=== PATIENT | female | born 1965 | race Caucasian/White ===

== ENCOUNTER 2021-05-14 10:31 | Outpatient (CLI) | payer OTHER | END 2021-05-14 10:32 | disposition home or self-care (01) | LOC: CSHWCC 10:31 | PROVIDERS: ATTEND Nurse Practitioner Family | DX: T81.89XD Other complications of procedures, not elsewhere classified, subsequent encounter (principal); T81.31XD Disruption of external operation (surgical) wound, not elsewhere classified, subsequent encounter; E78.2 Mixed hyperlipidemia; M17.9 Osteoarthritis of knee, unspecified; M48.061 Spinal stenosis, lumbar region without neurogenic claudication; I10 Essential (primary) hypertension; E66.3 Overweight ==

== ENCOUNTER 2021-05-15 16:57 | Emergency (ER) | payer OTHER ==
[2021-05-15] MEDS ORDERED: Dexamethasone 10 MG/ML VIAL ONE (21:11)
[2021-05-16 16:56] LABS: SARS-CoV-2 PCR by NAA DETECTED (NotDetected)
== END 2021-05-15 21:20 | disposition home or self-care (01) ==
LOC: CSHERS 16:57
DX: U07.1 COVID-19 (principal); I10 Essential (primary) hypertension; E66.9 Obesity, unspecified
CPT/HCPCS: 87081; 87430; 99283; J1100; U0003; U0005

== ENCOUNTER 2021-05-21 08:04 | Outpatient (CLI) | payer OTHER | END 2021-05-21 08:05 | disposition home or self-care (01) | LOC: CSHWCC 08:04 | PROVIDERS: ATTEND Nurse Practitioner Family | DX: T81.89XD Other complications of procedures, not elsewhere classified, subsequent encounter (principal); T81.31XD Disruption of external operation (surgical) wound, not elsewhere classified, subsequent encounter; M48.061 Spinal stenosis, lumbar region without neurogenic claudication; E78.2 Mixed hyperlipidemia; M17.9 Osteoarthritis of knee, unspecified; I10 Essential (primary) hypertension; E66.3 Overweight ==

== ENCOUNTER 2021-05-24 10:10 | Outpatient (CLI) | payer OTHER | END 2021-05-24 10:11 | disposition home or self-care (01) | LOC: CSHWCC 10:10 | PROVIDERS: ATTEND Nurse Practitioner Family | DX: T81.89XD Other complications of procedures, not elsewhere classified, subsequent encounter (principal); T81.31XD Disruption of external operation (surgical) wound, not elsewhere classified, subsequent encounter; M48.061 Spinal stenosis, lumbar region without neurogenic claudication; E78.2 Mixed hyperlipidemia; M17.9 Osteoarthritis of knee, unspecified; I10 Essential (primary) hypertension; E66.3 Overweight ==

== ENCOUNTER 2021-05-27 08:28 | Outpatient (CLI) | payer OTHER | END 2021-05-27 08:29 | disposition home or self-care (01) | LOC: CSHWCC 08:28 | PROVIDERS: ATTEND Nurse Practitioner Family | DX: T81.89XD Other complications of procedures, not elsewhere classified, subsequent encounter (principal); T81.31XD Disruption of external operation (surgical) wound, not elsewhere classified, subsequent encounter; E78.2 Mixed hyperlipidemia; E66.3 Overweight; I10 Essential (primary) hypertension; M17.9 Osteoarthritis of knee, unspecified; M48.061 Spinal stenosis, lumbar region without neurogenic claudication | CPT/HCPCS: 87070; 87077; 87186; 87205 ==

== ENCOUNTER 2021-05-31 08:15 | Outpatient (CLI) | payer OTHER | END 2021-05-31 08:16 | disposition home or self-care (01) | LOC: CSHWCC 08:15 | PROVIDERS: ATTEND Nurse Practitioner Family | DX: T81.89XD Other complications of procedures, not elsewhere classified, subsequent encounter (principal); T81.31XD Disruption of external operation (surgical) wound, not elsewhere classified, subsequent encounter; M48.061 Spinal stenosis, lumbar region without neurogenic claudication; M17.9 Osteoarthritis of knee, unspecified; E78.2 Mixed hyperlipidemia; E66.3 Overweight; I10 Essential (primary) hypertension ==

== ENCOUNTER 2021-06-03 08:05 | Outpatient (CLI) | payer OTHER | END 2021-06-03 08:06 | disposition home or self-care (01) | LOC: CSHWCC 08:05 | PROVIDERS: ATTEND Nurse Practitioner Family | DX: T81.89XD Other complications of procedures, not elsewhere classified, subsequent encounter (principal) ==

== ENCOUNTER 2021-06-07 09:34 | Outpatient (CLI) | payer OTHER | END 2021-06-07 09:35 | disposition home or self-care (01) | LOC: CSHWCC 09:34 | PROVIDERS: ATTEND Nurse Practitioner Family | DX: T81.89XD Other complications of procedures, not elsewhere classified, subsequent encounter (principal) | CPT/HCPCS: 97605; 99212; G0463 ==

== ENCOUNTER 2021-06-09 08:57 | Outpatient (CLI) | payer OTHER | END 2021-06-09 08:58 | disposition home or self-care (01) | LOC: CSHWCC 08:57 | PROVIDERS: ATTEND Nurse Practitioner Family | DX: T81.89XD Other complications of procedures, not elsewhere classified, subsequent encounter (principal) | CPT/HCPCS: 97605; 99212; G0463 ==

== ENCOUNTER 2021-06-14 08:27 | Outpatient (CLI) | payer OTHER | END 2021-06-14 08:28 | disposition home or self-care (01) | LOC: CSHWCC 08:27 | PROVIDERS: ATTEND Nurse Practitioner Family | DX: T81.89XD Other complications of procedures, not elsewhere classified, subsequent encounter (principal) | CPT/HCPCS: 97605 ==

== ENCOUNTER 2021-06-16 08:18 | Outpatient (CLI) | payer OTHER | END 2021-06-16 08:19 | disposition home or self-care (01) | LOC: CSHWCC 08:18 | PROVIDERS: ATTEND Nurse Practitioner Family | DX: T81.89XD Other complications of procedures, not elsewhere classified, subsequent encounter (principal) ==

== ENCOUNTER 2021-06-18 08:08 | Outpatient (CLI) | payer OTHER | END 2021-06-18 08:09 | disposition home or self-care (01) | LOC: CSHWCC 08:08 | PROVIDERS: ATTEND Nurse Practitioner Family | DX: T81.89XD Other complications of procedures, not elsewhere classified, subsequent encounter (principal) | CPT/HCPCS: 97605 ==

== ENCOUNTER 2021-06-21 09:00 | Outpatient (CLI) | payer OTHER | END 2021-06-21 09:01 | disposition home or self-care (01) | LOC: CSHWCC 09:00 | PROVIDERS: ATTEND Nurse Practitioner Family | DX: T81.89XD Other complications of procedures, not elsewhere classified, subsequent encounter (principal) ==

== ENCOUNTER 2021-06-23 09:10 | Outpatient (CLI) | payer OTHER | END 2021-06-23 09:11 | disposition home or self-care (01) | LOC: CSHWCC 09:10 | PROVIDERS: ATTEND Nurse Practitioner Family | DX: T81.89XD Other complications of procedures, not elsewhere classified, subsequent encounter (principal) | CPT/HCPCS: 97605 ==

== ENCOUNTER 2021-06-25 08:03 | Outpatient (CLI) | payer OTHER | END 2021-06-25 08:04 | disposition home or self-care (01) | LOC: CSHWCC 08:03 | PROVIDERS: ATTEND Nurse Practitioner Family | DX: T81.89XD Other complications of procedures, not elsewhere classified, subsequent encounter (principal) | CPT/HCPCS: 97605 ==

== ENCOUNTER 2021-06-28 08:12 | Outpatient (CLI) | payer OTHER | END 2021-06-28 08:13 | disposition home or self-care (01) | LOC: CSHWCC 08:12 | PROVIDERS: ATTEND Nurse Practitioner Family | DX: T81.89XD Other complications of procedures, not elsewhere classified, subsequent encounter (principal) ==

== ENCOUNTER 2021-06-30 07:59 | Outpatient (CLI) | payer OTHER | END 2021-06-30 08:00 | disposition home or self-care (01) | LOC: CSHWCC 07:59 | PROVIDERS: ATTEND Nurse Practitioner Family | DX: T81.89XD Other complications of procedures, not elsewhere classified, subsequent encounter (principal) | CPT/HCPCS: 97605 ==

== ENCOUNTER 2021-07-02 08:01 | Outpatient (CLI) | payer OTHER | END 2021-07-02 08:02 | disposition home or self-care (01) | LOC: CSHWCC 08:01 | PROVIDERS: ATTEND Nurse Practitioner Family | DX: T81.89XD Other complications of procedures, not elsewhere classified, subsequent encounter (principal) | CPT/HCPCS: 97605 ==

== ENCOUNTER 2021-07-06 08:19 | Outpatient (CLI) | payer OTHER | END 2021-07-06 08:20 | disposition home or self-care (01) | LOC: CSHWCC 08:19 | PROVIDERS: ATTEND Nurse Practitioner Family | DX: T81.89XD Other complications of procedures, not elsewhere classified, subsequent encounter (principal) | CPT/HCPCS: 99212; G0463 ==

== ENCOUNTER 2021-07-07 08:37 | Outpatient (CLI) | payer OTHER | END 2021-07-07 08:38 | disposition home or self-care (01) | LOC: CSHWCC 08:37 | PROVIDERS: ATTEND Nurse Practitioner Family | DX: T81.89XD Other complications of procedures, not elsewhere classified, subsequent encounter (principal) | CPT/HCPCS: 97605 ==

== ENCOUNTER 2021-07-09 08:51 | Outpatient (CLI) | payer OTHER | END 2021-07-09 08:52 | disposition home or self-care (01) | LOC: CSHWCC 08:51 | PROVIDERS: ATTEND Nurse Practitioner Family | DX: T81.89XD Other complications of procedures, not elsewhere classified, subsequent encounter (principal) | CPT/HCPCS: 97605 ==

== ENCOUNTER 2021-07-12 09:48 | Outpatient (CLI) | payer OTHER | END 2021-07-12 09:49 | disposition home or self-care (01) | LOC: CSHWCC 09:48 | PROVIDERS: ATTEND Nurse Practitioner Family | DX: T81.89XD Other complications of procedures, not elsewhere classified, subsequent encounter (principal) ==

== ENCOUNTER 2021-08-06 08:31 | Outpatient (CLI) | payer OTHER | END 2021-08-06 08:32 | disposition home or self-care (01) | LOC: CSHWCC 08:31 | PROVIDERS: ATTEND Nurse Practitioner Family | DX: T81.89XD Other complications of procedures, not elsewhere classified, subsequent encounter (principal) | CPT/HCPCS: 97605 ==

== ENCOUNTER 2021-08-11 08:08 | Outpatient (CLI) | payer OTHER | END 2021-08-11 08:09 | disposition home or self-care (01) | LOC: CSHWCC 08:08 | PROVIDERS: ATTEND Nurse Practitioner Family | DX: T81.89XD Other complications of procedures, not elsewhere classified, subsequent encounter (principal) | CPT/HCPCS: 97605 ==

== ENCOUNTER 2021-08-13 09:01 | Outpatient (CLI) | payer OTHER | END 2021-08-13 09:02 | disposition home or self-care (01) | LOC: CSHWCC 09:01 | PROVIDERS: ATTEND Nurse Practitioner Family | DX: T81.89XD Other complications of procedures, not elsewhere classified, subsequent encounter (principal) | CPT/HCPCS: 97605 ==

== ENCOUNTER 2021-08-16 08:15 | Outpatient (CLI) | payer OTHER | END 2021-08-16 08:16 | disposition home or self-care (01) | LOC: CSHWCC 08:15 | PROVIDERS: ATTEND Nurse Practitioner Family | DX: T81.89XD Other complications of procedures, not elsewhere classified, subsequent encounter (principal) | CPT/HCPCS: 97605 ==

== ENCOUNTER 2021-08-30 08:07 | Outpatient (CLI) | payer OTHER | END 2021-08-30 08:08 | disposition home or self-care (01) | LOC: CSHWCC 08:07 | PROVIDERS: ATTEND Nurse Practitioner Family | DX: T81.89XD Other complications of procedures, not elsewhere classified, subsequent encounter (principal) | CPT/HCPCS: 97605 ==

== ENCOUNTER 2021-09-01 13:59 | Outpatient (CLI) | payer OTHER | END 2021-09-01 14:00 | disposition home or self-care (01) | LOC: CSHWCC 13:59 | PROVIDERS: ATTEND Nurse Practitioner Family | DX: T81.89XD Other complications of procedures, not elsewhere classified, subsequent encounter (principal) | CPT/HCPCS: 97605 ==

== ENCOUNTER 2021-09-03 08:06 | Outpatient (CLI) | payer OTHER | END 2021-09-03 08:07 | disposition home or self-care (01) | LOC: CSHWCC 08:06 | PROVIDERS: ATTEND Nurse Practitioner Family | DX: T81.89XD Other complications of procedures, not elsewhere classified, subsequent encounter (principal) | CPT/HCPCS: 97605 ==

== ENCOUNTER 2021-09-06 08:03 | Outpatient (CLI) | payer OTHER | END 2021-09-06 08:04 | disposition home or self-care (01) | LOC: CSHWCC 08:03 | PROVIDERS: ATTEND Nurse Practitioner Family | DX: T81.89XD Other complications of procedures, not elsewhere classified, subsequent encounter (principal) | CPT/HCPCS: 99213; G0463 ==

== ENCOUNTER 2021-09-08 08:06 | Outpatient (CLI) | payer OTHER | END 2021-09-08 08:07 | disposition home or self-care (01) | LOC: CSHWCC 08:06 | PROVIDERS: ATTEND Nurse Practitioner Family | DX: T81.89XD Other complications of procedures, not elsewhere classified, subsequent encounter (principal) | CPT/HCPCS: 99213; G0463 ==

== ENCOUNTER 2021-09-10 08:06 | Outpatient (CLI) | payer OTHER | END 2021-09-10 08:07 | disposition home or self-care (01) | LOC: CSHWCC 08:06 | PROVIDERS: ATTEND Nurse Practitioner Family | DX: T81.89XD Other complications of procedures, not elsewhere classified, subsequent encounter (principal) | CPT/HCPCS: 99213; G0463 ==

== ENCOUNTER 2021-09-13 08:51 | Outpatient (CLI) | payer OTHER | END 2021-09-13 08:52 | disposition home or self-care (01) | LOC: CSHWCC 08:51 | PROVIDERS: ATTEND Nurse Practitioner Family | DX: T81.89XD Other complications of procedures, not elsewhere classified, subsequent encounter (principal) | CPT/HCPCS: 99213; G0463 ==

== ENCOUNTER 2021-09-16 13:17 | Outpatient (CLI) | payer OTHER | END 2021-09-16 13:18 | disposition home or self-care (01) | LOC: CSHWCC 13:17 | PROVIDERS: ATTEND Nurse Practitioner Family | DX: T81.89XD Other complications of procedures, not elsewhere classified, subsequent encounter (principal) ==

== ENCOUNTER 2021-09-20 08:09 | Outpatient (CLI) | payer OTHER | END 2021-09-20 08:10 | disposition home or self-care (01) | LOC: CSHWCC 08:09 | PROVIDERS: ATTEND Nurse Practitioner Family | DX: T81.89XD Other complications of procedures, not elsewhere classified, subsequent encounter (principal) | CPT/HCPCS: 99213; G0463 ==

== ENCOUNTER 2021-09-23 08:44 | Outpatient (CLI) | payer OTHER | END 2021-09-23 08:45 | disposition home or self-care (01) | LOC: CSHWCC 08:44 | PROVIDERS: ATTEND Nurse Practitioner Family | DX: T81.89XD Other complications of procedures, not elsewhere classified, subsequent encounter (principal) | CPT/HCPCS: 99212; G0463 ==

== ENCOUNTER 2021-09-27 10:03 | Outpatient (CLI) | payer OTHER | END 2021-09-27 10:04 | disposition home or self-care (01) | LOC: CSHWCC 10:03 | PROVIDERS: ATTEND Nurse Practitioner Family | DX: T81.89XD Other complications of procedures, not elsewhere classified, subsequent encounter (principal) | CPT/HCPCS: 99213; G0463 ==

== ENCOUNTER 2021-09-30 08:05 | Outpatient (CLI) | payer OTHER | END 2021-09-30 08:06 | disposition home or self-care (01) | LOC: CSHWCC 08:05 | PROVIDERS: ATTEND Nurse Practitioner Family | DX: T81.89XD Other complications of procedures, not elsewhere classified, subsequent encounter (principal) | CPT/HCPCS: 99212; G0463 ==

== ENCOUNTER 2021-10-05 08:47 | Outpatient (CLI) | payer OTHER | END 2021-10-05 08:48 | disposition home or self-care (01) | LOC: CSHWCC 08:47 | PROVIDERS: ATTEND Nurse Practitioner Family | DX: T81.89XD Other complications of procedures, not elsewhere classified, subsequent encounter (principal) | CPT/HCPCS: 99212; G0463 ==

== ENCOUNTER 2021-10-08 08:32 | Outpatient (CLI) | payer OTHER | END 2021-10-08 08:33 | disposition home or self-care (01) | LOC: CSHWCC 08:32 | PROVIDERS: ATTEND Nurse Practitioner Family | DX: T81.89XD Other complications of procedures, not elsewhere classified, subsequent encounter (principal) | CPT/HCPCS: 99212; G0463 ==

== ENCOUNTER 2021-10-11 12:48 | Outpatient (CLI) | payer OTHER | END 2021-10-11 12:49 | disposition home or self-care (01) | LOC: CSHWCC 12:48 | PROVIDERS: ATTEND Nurse Practitioner Family | DX: T81.89XD Other complications of procedures, not elsewhere classified, subsequent encounter (principal) | CPT/HCPCS: 99213; G0463 ==

== ENCOUNTER 2021-10-14 11:15 | Outpatient (CLI) | payer OTHER | END 2021-10-14 11:16 | disposition home or self-care (01) | LOC: CSHWCC 11:15 | PROVIDERS: ATTEND Nurse Practitioner Family | DX: T81.89XD Other complications of procedures, not elsewhere classified, subsequent encounter (principal) | CPT/HCPCS: 99212; G0463 ==

== ENCOUNTER 2021-10-18 09:02 | Outpatient (CLI) | payer OTHER | END 2021-10-18 09:03 | disposition home or self-care (01) | LOC: CSHWCC 09:02 | PROVIDERS: ATTEND Nurse Practitioner Family | DX: T81.89XD Other complications of procedures, not elsewhere classified, subsequent encounter (principal) | CPT/HCPCS: 99212; G0463 ==

== ENCOUNTER 2021-10-21 09:52 | Outpatient (CLI) | payer OTHER | END 2021-10-21 09:53 | disposition home or self-care (01) | LOC: CSHWCC 09:52 | PROVIDERS: ATTEND Nurse Practitioner Family | DX: T81.89XD Other complications of procedures, not elsewhere classified, subsequent encounter (principal) | CPT/HCPCS: 99213; G0463 ==

== ENCOUNTER 2021-10-25 11:12 | Outpatient (CLI) | payer OTHER | END 2021-10-25 11:13 | disposition home or self-care (01) | LOC: CSHWCC 11:12 | PROVIDERS: ATTEND Nurse Practitioner Family | DX: T81.89XD Other complications of procedures, not elsewhere classified, subsequent encounter (principal) | CPT/HCPCS: 99212; G0463 ==

== ENCOUNTER 2021-11-15 08:07 | Outpatient (CLI) | payer OTHER | END 2021-11-15 08:08 | disposition home or self-care (01) | LOC: CSHWCC 08:07 | PROVIDERS: ATTEND Nurse Practitioner Family | DX: T81.89XD Other complications of procedures, not elsewhere classified, subsequent encounter (principal) ==

== ENCOUNTER 2021-11-18 11:24 | Outpatient (CLI) | payer OTHER | END 2021-11-18 11:25 | disposition home or self-care (01) | LOC: CSHWCC 11:24 | PROVIDERS: ATTEND Nurse Practitioner Family | DX: S31.000D Unspecified open wound of lower back and pelvis without penetration into retroperitoneum, subsequent encounter (principal) ==

== ENCOUNTER 2021-11-23 11:16 | Outpatient (CLI) | payer OTHER | END 2021-11-23 11:17 | disposition home or self-care (01) | LOC: CSHWCC 11:16 | PROVIDERS: ATTEND Nurse Practitioner Family | DX: S31.000D Unspecified open wound of lower back and pelvis without penetration into retroperitoneum, subsequent encounter (principal) | CPT/HCPCS: 99212; G0463 ==

== ENCOUNTER 2021-11-26 08:15 | Outpatient (CLI) | payer OTHER | END 2021-11-26 08:16 | disposition home or self-care (01) | LOC: CSHWCC 08:15 | PROVIDERS: ATTEND Nurse Practitioner Family | DX: S31.000D Unspecified open wound of lower back and pelvis without penetration into retroperitoneum, subsequent encounter (principal) | CPT/HCPCS: 99212; G0463 ==

== ENCOUNTER 2021-11-30 08:09 | Outpatient (CLI) | payer OTHER | END 2021-11-30 08:10 | disposition home or self-care (01) | LOC: CSHWCC 08:09 | PROVIDERS: ATTEND Nurse Practitioner Family | DX: S31.000D Unspecified open wound of lower back and pelvis without penetration into retroperitoneum, subsequent encounter (principal) ==

== ENCOUNTER 2022-09-15 09:14 | Outpatient (CLI) | payer OTHER | END 2022-09-15 09:15 | disposition home or self-care (01) | LOC: CSHCP 09:14 | PROVIDERS: ATTEND Internal Medicine Critical Care Medicine | DX: M34.9 Systemic sclerosis, unspecified (principal); R94.2 Abnormal results of pulmonary function studies | CPT/HCPCS: 94010; 94729; 94760 ==

== ENCOUNTER 2022-11-01 08:35 | Outpatient (CLI) | payer OTHER | END 2022-11-01 08:36 | disposition home or self-care (01) | LOC: CSHWCC 08:35 | PROVIDERS: ATTEND Nurse Practitioner Family | DX: T81.89XD Other complications of procedures, not elsewhere classified, subsequent encounter (principal) | CPT/HCPCS: 97597; 97605 ==

== ENCOUNTER 2022-11-04 10:11 | Outpatient (CLI) | payer OTHER | END 2022-11-04 10:12 | disposition home or self-care (01) | LOC: CSHWCC 10:11 | PROVIDERS: ATTEND Nurse Practitioner Family | DX: T81.89XD Other complications of procedures, not elsewhere classified, subsequent encounter (principal) | CPT/HCPCS: 97605 ==

== ENCOUNTER 2022-11-07 08:56 | Outpatient (CLI) | payer OTHER | END 2022-11-07 08:57 | disposition home or self-care (01) | LOC: CSHWCC 08:56 | PROVIDERS: ATTEND Nurse Practitioner Family | DX: T81.89XD Other complications of procedures, not elsewhere classified, subsequent encounter (principal) | CPT/HCPCS: 99212; G0463 ==

== ENCOUNTER 2022-11-14 07:59 | Outpatient (CLI) | payer OTHER | END 2022-11-14 08:00 | disposition home or self-care (01) | LOC: CSHWCC 07:59 | PROVIDERS: ATTEND Nurse Practitioner Family | DX: T81.89XD Other complications of procedures, not elsewhere classified, subsequent encounter (principal) | CPT/HCPCS: 97605 ==

== ENCOUNTER 2022-11-16 09:29 | Outpatient (CLI) | payer OTHER | END 2022-11-16 09:30 | disposition home or self-care (01) | LOC: CSHWCC 09:29 | PROVIDERS: ATTEND Nurse Practitioner Family | DX: T81.89XD Other complications of procedures, not elsewhere classified, subsequent encounter (principal) | CPT/HCPCS: 97605; 99211; 99212; G0463 ==

== ENCOUNTER 2022-11-18 08:44 | Outpatient (CLI) | payer OTHER | END 2022-11-18 08:45 | disposition home or self-care (01) | LOC: CSHWCC 08:44 | PROVIDERS: ATTEND Nurse Practitioner Family | DX: T81.89XD Other complications of procedures, not elsewhere classified, subsequent encounter (principal) | CPT/HCPCS: 97605 ==

== ENCOUNTER 2022-11-23 09:36 | Outpatient (CLI) | payer OTHER | END 2022-11-23 09:37 | disposition home or self-care (01) | LOC: CSHWCC 09:36 | PROVIDERS: ATTEND Nurse Practitioner Family | DX: T81.89XD Other complications of procedures, not elsewhere classified, subsequent encounter (principal) | CPT/HCPCS: 97597 ==

== ENCOUNTER 2022-11-25 10:25 | Outpatient (CLI) | payer OTHER | END 2022-11-25 10:26 | disposition home or self-care (01) | LOC: CSHWCC 10:25 | PROVIDERS: ATTEND Nurse Practitioner Family | DX: T81.89XD Other complications of procedures, not elsewhere classified, subsequent encounter (principal) | CPT/HCPCS: 97605 ==

== ENCOUNTER 2022-11-28 13:48 | Outpatient (CLI) | payer OTHER | END 2022-11-28 13:49 | disposition home or self-care (01) | LOC: CSHWCC 13:48 | PROVIDERS: ATTEND Nurse Practitioner Family | DX: T81.89XD Other complications of procedures, not elsewhere classified, subsequent encounter (principal) | CPT/HCPCS: 97605 ==

== ENCOUNTER 2022-11-30 13:02 | Outpatient (CLI) | payer OTHER | END 2022-11-30 13:03 | disposition home or self-care (01) | LOC: CSHWCC 13:02 | PROVIDERS: ATTEND Nurse Practitioner Family | DX: T81.89XD Other complications of procedures, not elsewhere classified, subsequent encounter (principal) | CPT/HCPCS: 97605 ==

== ENCOUNTER 2022-12-05 08:13 | Outpatient (CLI) | payer OTHER | END 2022-12-05 08:14 | disposition home or self-care (01) | LOC: CSHWCC 08:13 | PROVIDERS: ATTEND Nurse Practitioner Family | DX: T81.89XD Other complications of procedures, not elsewhere classified, subsequent encounter (principal) | CPT/HCPCS: 97597; 97605 ==

== ENCOUNTER 2022-12-07 15:32 | Outpatient (CLI) | payer OTHER | END 2022-12-07 15:33 | disposition home or self-care (01) | LOC: CSHWCC 15:32 | PROVIDERS: ATTEND Nurse Practitioner Family | DX: T81.89XD Other complications of procedures, not elsewhere classified, subsequent encounter (principal) | CPT/HCPCS: 97605 ==

== ENCOUNTER 2022-12-09 08:41 | Outpatient (CLI) | payer OTHER | END 2022-12-09 08:42 | disposition home or self-care (01) | LOC: CSHWCC 08:41 | PROVIDERS: ATTEND Nurse Practitioner Family | DX: T81.89XD Other complications of procedures, not elsewhere classified, subsequent encounter (principal) | CPT/HCPCS: 97605 ==

== ENCOUNTER 2022-12-12 08:41 | Outpatient (CLI) | payer OTHER | END 2022-12-12 08:42 | disposition home or self-care (01) | LOC: CSHWCC 08:41 | PROVIDERS: ATTEND Nurse Practitioner Family | DX: T81.89XD Other complications of procedures, not elsewhere classified, subsequent encounter (principal) | CPT/HCPCS: 97605 ==

== ENCOUNTER 2022-12-14 11:09 | Outpatient (CLI) | payer OTHER | END 2022-12-14 11:10 | disposition home or self-care (01) | LOC: CSHWCC 11:09 | PROVIDERS: ATTEND Nurse Practitioner Family | DX: T81.89XD Other complications of procedures, not elsewhere classified, subsequent encounter (principal) | CPT/HCPCS: 97605 ==

== ENCOUNTER 2022-12-16 11:04 | Outpatient (CLI) | payer OTHER | END 2022-12-16 11:05 | disposition home or self-care (01) | LOC: CSHWCC 11:04 | PROVIDERS: ATTEND Nurse Practitioner Family | DX: T81.89XD Other complications of procedures, not elsewhere classified, subsequent encounter (principal); T87.89 Other complications of amputation stump | CPT/HCPCS: 97605 ==

== ENCOUNTER 2022-12-19 16:00 | Outpatient (CLI) | payer OTHER | END 2022-12-19 16:01 | disposition home or self-care (01) | LOC: CSHWCC 16:00 | PROVIDERS: ATTEND Nurse Practitioner Family | DX: T81.89XD Other complications of procedures, not elsewhere classified, subsequent encounter (principal) | CPT/HCPCS: 97605 ==

== ENCOUNTER 2022-12-21 13:06 | Outpatient (CLI) | payer OTHER | END 2022-12-21 13:07 | disposition home or self-care (01) | LOC: CSHWCC 13:06 | PROVIDERS: ATTEND Nurse Practitioner Family | DX: T81.89XD Other complications of procedures, not elsewhere classified, subsequent encounter (principal) | CPT/HCPCS: 97597; 97605 ==

== ENCOUNTER 2022-12-23 08:10 | Outpatient (CLI) | payer OTHER | END 2022-12-23 08:11 | disposition home or self-care (01) | LOC: CSHWCC 08:10 | PROVIDERS: ATTEND Nurse Practitioner Family | DX: T81.89XD Other complications of procedures, not elsewhere classified, subsequent encounter (principal) | CPT/HCPCS: 97605 ==

== ENCOUNTER 2022-12-26 13:07 | Outpatient (CLI) | payer OTHER | END 2022-12-26 13:08 | disposition home or self-care (01) | LOC: CSHWCC 13:07 | PROVIDERS: ATTEND Nurse Practitioner Family | DX: T81.89XD Other complications of procedures, not elsewhere classified, subsequent encounter (principal) | CPT/HCPCS: 97605 ==

== ENCOUNTER 2022-12-28 09:10 | Outpatient (CLI) | payer OTHER | END 2022-12-28 09:11 | disposition home or self-care (01) | LOC: CSHWCC 09:10 | PROVIDERS: ATTEND Nurse Practitioner Family | DX: T81.89XD Other complications of procedures, not elsewhere classified, subsequent encounter (principal) | CPT/HCPCS: 97602 ==

== ENCOUNTER 2022-12-30 09:24 | Outpatient (CLI) | payer OTHER | END 2022-12-30 09:25 | disposition home or self-care (01) | LOC: CSHWCC 09:24 | PROVIDERS: ATTEND Nurse Practitioner Family | DX: T81.89XD Other complications of procedures, not elsewhere classified, subsequent encounter (principal) | CPT/HCPCS: 99211; G0463 ==

== ENCOUNTER 2023-01-03 08:15 | Outpatient (CLI) | payer OTHER | END 2023-01-03 08:16 | disposition home or self-care (01) | LOC: CSHWCC 08:15 | PROVIDERS: ATTEND Nurse Practitioner Family | DX: T81.89XD Other complications of procedures, not elsewhere classified, subsequent encounter (principal) | CPT/HCPCS: 99211; G0463 ==

== ENCOUNTER 2023-01-06 11:57 | Outpatient (CLI) | payer OTHER | END 2023-01-06 11:58 | disposition home or self-care (01) | LOC: CSHWCC 11:57 | PROVIDERS: ATTEND Nurse Practitioner Family | DX: T81.89XD Other complications of procedures, not elsewhere classified, subsequent encounter (principal) | CPT/HCPCS: 99213; G0463 ==

== ENCOUNTER 2023-01-10 14:09 | Outpatient (CLI) | payer OTHER | END 2023-01-10 14:10 | disposition home or self-care (01) | LOC: CSHWCC 14:09 | PROVIDERS: ATTEND Nurse Practitioner Family | DX: T81.89XD Other complications of procedures, not elsewhere classified, subsequent encounter (principal) | CPT/HCPCS: 97602 ==

== ENCOUNTER 2023-01-18 15:12 | Outpatient (CLI) | payer OTHER | END 2023-01-18 15:13 | disposition home or self-care (01) | LOC: CSHWCC 15:12 | PROVIDERS: ATTEND Nurse Practitioner Family | DX: T81.89XD Other complications of procedures, not elsewhere classified, subsequent encounter (principal) | CPT/HCPCS: 99211; G0463 ==

== ENCOUNTER 2024-05-16 07:46 | Outpatient (CLI) | payer BC | END 2024-05-16 07:47 | disposition home or self-care (01) | LOC: CSHCP 07:46 | PROVIDERS: ATTEND Internal Medicine Critical Care Medicine | DX: M34.9 Systemic sclerosis, unspecified (principal) | CPT/HCPCS: 94010; 94726; 94729; 94760 ==

== ENCOUNTER 2025-03-19 08:13 | Outpatient (CLI) | payer BC | END 2025-03-19 08:14 | disposition home or self-care (01) | LOC: CSHCP 08:13 | PROVIDERS: ATTEND Internal Medicine Critical Care Medicine | DX: M34.9 Systemic sclerosis, unspecified (principal) | CPT/HCPCS: 94010; 94729; 94760 ==